=== PATIENT | female | born 1975 | race African-American/Black ===

== ENCOUNTER 2016-10-10 10:14 | Emergency (ER) | payer OTHER ==
[~2016-10-10] VITALS: Ht 167.6 cm; Wt 93.0 kg
[~2016-10-10 10:14] MED LIST: ALBU6.7H IH; CLAR10 PO; LEVO500T15 PO; MEDR150D9 IM
[2016-10-10] MEDS ORDERED: DIPHENHYDRAMINE 50MG CAPSULE PO ONE (11:15)
[2016-10-10] MEDS ORDERED: KETOROLAC 60MG/2ML VIAL IM ONE (11:15)
[2016-10-10 11:20] LABS: BASOPHILS % 1.2 % (0.0-2.0); EOSINOPHILS % 6.2 % (0.0-5.0); HEMATOCRIT. 37.9 % (36.0-48.0); HEMOGLOBIN. 12.6 g/dL (12.0-16.0); LYMPHOCYTES % 28.4 % (20.0-50.0); MEAN CORPUSCULAR HEMOGLOBIN 28.5 pg (28.0-32.0); MEAN CORPUSCULAR VOLUME 85.6 fL (81.0-99.0); MEAN PLATELET VOLUME 8.7 fl (7.4-10.4); MONOCYTES % 8.7 % (2.0-8.0); NEUTROPHILS % 55.5 % (40.0-76.0); PLATELET 411 x1000/uL (130-400); RED BLOOD CELL COUNT 4.43 mill/uL (4.2-5.4); RED CELL DISTRIBUTION WIDTH 15.4 % (11.6-14.6)
[2016-10-10 11:28] LABS: CHLORIDE 102 mEq/L (98-107)
[2016-10-10 11:29] VITALS: BP 122/77
[2016-10-10 11:33] LABS: CARBON DIOXIDE 27 mEq/L (21-32)
== END 2016-10-10 12:20 | disposition home or self-care (01) ==
LOC: ER 10:43
DX: M25.531 Pain in right wrist (principal); M79.89 Other specified soft tissue disorders; J44.9 Chronic obstructive pulmonary disease, unspecified; Z87.891 Personal history of nicotine dependence; Z88.8 Allergy status to other drugs, medicaments and biological substances
CPT/HCPCS: 29125; 36415; 73110; 80048; 81025; 83605; 85025; 96372; 99285; J1885

== ENCOUNTER 2023-12-24 12:06 | Emergency (ER) | payer BC, OTHER ==
[~2023-12-24] VITALS: Ht 170.2 cm; Wt 90.0 kg
[~2023-12-24 12:06] MED LIST changes: -ALBU6.7H IH; +ALBU6.7H15 IH; -LEVO500T15 PO; +LEVO500T2 PO
[2023-12-24 12:07] VITALS: O2SAT 100
[2023-12-24] MEDS: METOCLOPRAMIDE HCL 10MG/2ML VIAL IV ONE (13:54)
[2023-12-24] MEDS: SODIUM CHLORIDE 0.9% 1,000 ML IV ONE (13:54)
[2023-12-24] MEDS: ACETAMINOPHEN 325MG TABLET PO ONE (13:54)
[2023-12-24] MEDS: DIPHENHYDRAMINE 50MG/ML VIAL IV ONE (13:54)
[2023-12-24 15:10] LABS: BASOPHILS % 1.1 % (0.0-2.0); HEMATOCRIT. 36.8 % (36.0-48.0); LYMPHOCYTES % 15.3 % (20.0-50.0); MEAN CORPUSCULAR HGB CONC 32.8 g/dL (31.0-37.0); MEAN CORPUSCULAR VOLUME 85.4 fL (81.0-99.0); MEAN PLATELET VOLUME 8.4 fl (7.4-10.4); NEUTROPHILS % 77.6 % (40.0-76.0); PLATELET 417 x1000/uL (130-400); RED CELL DISTRIBUTION WIDTH 16.1 % (11.6-14.6); WHITE BLOOD COUNT 7.4 x1000/uL (4.5-11.0)
[2023-12-24 15:17] LABS: CHLORIDE 107 mEq/L (98-107); POTASSIUM 3.9 mEq/L (3.5-5.1); SODIUM 138 mEq/L (136-145)
[2023-12-24 15:18] LABS: CALCIUM 8.7 mg/dL (8.7-10.4); CARBON DIOXIDE 27 mEq/L (21-32)
[2023-12-24 15:23] LABS: CREATININE 0.6 mg/dL (0.6-1.0); GLUCOSE 101 mg/dL (70-105); UREA NITROGEN BLOOD 7 mg/dL (9-23)
[2023-12-24 15:38] LABS: PROTHROMBIN TIME 11.2 sec (9.6-11.0)
[2023-12-24 16:43] VITALS: BP 104/56; PULSE 68; RESP 20; TEMP 37.05852; O2SAT 98
== END 2023-12-24 16:47 | disposition home or self-care (01) ==
LOC: ER 12:06
DX: R51.9 Headache, unspecified (principal); J44.89 Other specified chronic obstructive pulmonary disease; Z88.8 Allergy status to other drugs, medicaments and biological substances; Z88.6 Allergy status to analgesic agent; Z82.49 Family history of ischemic heart disease and other diseases of the circulatory system
CPT/HCPCS: 99285; 96374; 70450; 96361; 96375; 80048; 85025; 85610; 36415; J1200; J2765; J7030